=== PATIENT | female | born 1965 ===

== ENCOUNTER → 2022-12-17 | Outpatient (CLI) | payer OTHER ==
[2022-12-21 15:09] LABS: HPV 16 Negative (Negative); HPV 18 Negative (Negative); HPV OTHER HR TYPES Negative (Negative)
== END | disposition home or self-care (01) ==
LOC: LAB SHORT 14:29 → LAB 14:29
PROVIDERS: Family Medicine
DX: Z12.4 Encounter for screening for malignant neoplasm of cervix (principal)
CPT/HCPCS: 87624; G0145

== ENCOUNTER → 2023-03-16 | Outpatient (CLI) | payer OTHER | LOC: LAB SHORT 10:58 → LAB 10:58 | DX: E11.65 Type 2 diabetes mellitus with hyperglycemia (principal) | CPT/HCPCS: 82043 ==

== ENCOUNTER → 2023-05-28 | Outpatient (CLI) | payer OTHER | LOC: LAB SHORT 08:52 → LAB 08:52 | DX: L57.0 Actinic keratosis (principal) | CPT/HCPCS: 88305; 88312 ==